=== PATIENT | male | born 1980 | race Caucasian/White ===

== ENCOUNTER 2021-05-22 16:22 | Emergency (ER) | payer OTHER, SELFPAY ==
[2021-05-22 16:26] VITALS: BP 150/79; PULSE 84; RESP 16; TEMP 36.8; O2SAT 96; BMI 30.3
--- NOTE | 2021-05-22 16:32 | DI.RAD.S_ITS ---
PROCEDURE: XR KNEE RT 3V INDICATIONS: fall from 6 ft/ R knee swelling TECHNIQUE: 3 views of the knee were acquired. COMPARISON: None. FINDINGS: Bones: Comminuted fracture of the proximal tibia predominantly involving the tibial spines extending into the posterior tibial cortex. Mild buckling of the posterior cortex without significant displacement. Soft tissues: Large suprapatellar lipohemarthrosis noted. IMPRESSION: Proximal comminuted tibial fracture associated with large lipohemarthrosis Approved by: Ian Mclaughlin M.D. on 05/22/2021 at 16:43
--- NOTE | 2021-05-22 16:48 | DI.RAD.S_ITS ---
PROCEDURE: XR FOOT RT 2V INDICATIONS: Fall TECHNIQUE: 2 views of the foot were acquired. COMPARISON: None. FINDINGS: Bones: No fractures or dislocations. No suspicious bony lesions. Soft tissues: No tibiotalar joint effusion. Achilles tendon appears normal. IMPRESSION: Unremarkable right foot radiographs Approved by: Ian Mclaughlin M.D. on 05/22/2021 at 16:45
--- NOTE | 2021-05-22 16:48 | DI.RAD.S_ITS ---
PROCEDURE: XR TIBIA FUBULA RT 2V INDICATIONS: Fall TECHNIQUE: 2 views of the tibia and fibula were acquired. COMPARISON: None. FINDINGS: Bones: Proximal tibial intra-articular fracture with lipohemarthrosis is present. No distal tibial or fibular fracture. Soft tissues: No suspicious soft tissue calcifications or masses. IMPRESSION: Comminuted intra-articular proximal tibial fracture Approved by: Ian Mclaughlin M.D. on 05/22/2021 at 16:44
[2021-05-22] MEDS: MORPHINE 4 MG/ML INJ IV ×3 (17:11→21:23)
[2021-05-22 18:16] VITALS: BP 134/78; PULSE 77; O2SAT 99
--- NOTE | 2021-05-22 18:47 | ED_ITS ---
HPI - Extremity Injury (Lower) <Amado Mack PA-C - Last Filed: 05/22/21 20:43> General Chief Complaint: Extremity Injury, Lower Stated Complaint: fall Time Seen by Provider: 05/22/21 16:32 History of Present Illness HPI Narrative: 41-year-old male with no reported past medical history presents to the ED status post a right knee injury. Patient had a mechanical fall where he landed on his right foot, his knee buckled, he hit his right knee to the floor. Patient reports 10 pain, is unable to bear weight or walk on the right leg, reports swelling. Denies numbness, tingling, weakness. Denies head strike, loss of consciousness. Denies any other injuries. Denies neck pain. Related Data Allergies Allergy/AdvReac Type Severity Reaction Status Date / Time No Known Drug Allergies Allergy Verified 05/22/21 17:03 Review of Systems <Amado Mack PA-C - Last Filed: 05/22/21 20:43> Constitutional Constitutional: Denies chills, Denies fatigue, Denies fever(s), Denies frequent falls, Denies lethargy and Denies weakness Eyes Eyes: Denies change in vision, Denies eye discharge, Denies irritation and Denies loss of vision ENT Ears, Nose, Mouth, and Throat: Denies change in voice, Denies dizziness, Denies neck pain, Denies sore throat and Denies throat swelling Cardiovascular Cardiovascular: Denies chest pain, Denies irregular heart rhythm, Denies lightheadedness, Denies palpitations, Denies dyspnea, Denies dyspnea on exertion and Denies orthopnea Respiratory Respiratory: Denies cough, Denies dyspnea, Denies dyspnea on exertion and Denies wheezing Gastrointestinal Gastrointestinal: Denies abdominal pain, Denies change in bowel habits, Denies diarrhea, Denies nausea and Denies vomiting Musculoskeletal Musculoskeletal: Denies neck pain and Denies numbness Comments: Right knee swelling, pain. Unable to bear weight or walk on right leg Integumentary/Breasts Skin/Breast: Denies pruritus, Denies erythema, Denies rash and Denies wounds Neurologic Neurologic: Denies behavioral changes, Denies confusion, Denies dizziness, Denies frequent falls, Denies loss of vision, Denies numbness and Denies weakness Psychiatric Psychiatric: Denies anxiety, Denies behavioral changes, Denies confusion, Denies depression, Denies homicidal ideation and Denies suicidal ideation Endocrine Endocrine: Denies fatigue, Denies flushing and Denies palpitations Hematologic/Lymphatic Hematologic/Lymphatic: Denies easy bruising Allergic/Immunologic Allergic/Immunologic: Denies urticaria, Denies throat swelling and Denies wheezing Exam <Amado Mack PA-C - Last Filed: 05/22/21 20:43> Initial Vital Signs Initial Vital Signs: Vital Signs Temperature 98.3 F 05/22/21 16:26 Pulse Rate 84 05/22/21 16:26 Respiratory Rate 16 05/22/21 16:26 Blood Pressure 150/79 H 05/22/21 16:26 Pulse Oximetry 96 05/22/21 16:26 Const General: cooperative HENMT Head: normocephalic and atraumatic Ears: external ears normal and TM's normal bilaterally Nose: external nose normal and No nasal discharge Face and sinus: sinuses nontender, face symmetric, no sinus tenderness and No dry mucous membranes Mouth: oral mucosae normal and moist mucous membranes Teeth and gingiva: dentition normal Throat: tonsils normal and uvula midline Eyes General: appearance normal, both eyes and all related structures Eyelids: eyelids normal Conjunctivae: conjunctivae normal Sclera: sclerae normal Pupils: PERRL EOM: EOM intact bilaterally Neck Neck: normal visual inspection, trachea midline, No lymphadenopathy, No midline deformity and No JVD Lymphatic: No lymphedema Chest Chest: normal inspection of the chest Resp Effort & Inspection: normal respiratory effort, able to speak in complete sentences, no respiratory distress and no use of accessory muscles Auscultation: clear to auscultation bilaterally, no rales, no rhonchi and no wheezes Cardio Rate: regular rate Rhythm: regular rhythm Heart Sounds: no click, no gallops, no murmurs and no rubs Pulses: normal peripheral pulses GI Inspection: non-distended Palpation: soft, no hepatosplenomegaly, No guarding, No pulsatile mass and No tender Auscultation: normal bowel sounds Back/Spine/Pelvis Back: No CVA tenderness Cervical Spine: cervical ROM normal and No pain with cervical ROM Thoracic/Lumbar Spine: thoracic and lumbar spine normal to inspection Skin General: no rashes or lesions noted, No jaundice and No petechiae Neuro General: patient alert, patient oriented x3, gait normal and no focal motor deficits Speech: speech normal Extrem General: no clubbing, cyanosis or edema and no pedal edema Other: Right knee with significant suprapatellar swelling. Significantly tender to palpation. Patient unable to range his knee, limited by pain. Patient is neurovascularly intact. Psych Appearance: well kempt Mental Status: mental status grossly normal Attitude: cooperative Thought Content: normal and suicidality Judgment: judgment good <Jasmin Brothers DO - Last Filed: 05/24/21 23:47> Initial Vital Signs Initial Vital Signs: Vital Signs Temperature 98.3 F 05/22/21 16:26 Pulse Rate 84 05/22/21 16:26 Respiratory Rate 16 05/22/21 16:26 Blood Pressure 150/79 H 05/22/21 16:26 Pulse Oximetry 96 05/22/21 16:26 Course <Amado Mack PA-C - Last Filed: 05/22/21 20:43> Course Course Narrative: X-ray shows a comminuted fracture of the proximal tibia predominantly involving the tibial spines extending into the posterior tibial cortex. There is also a large suprapatellar lipohemarthrosis noted. Will obtain CT of the right lower extremity for more details. Patient continues to be neurovascularly intact and stable. Compartments soft. Knee immobilizer applied. Will reassess. Dr. Wendy Klein office assistant receptionist orthosurgeon consulted. He recommends transfer for surgery. [facility] ED called, consulted Dr. Todd Jaramillo (accepting physician). Patient to be sent ALS d/t pain medication needs. Orders Ordered: Discontinued Medications Morphine Sulfate (Morphine 4 Mg/Ml Inj) 4 mg IV NOW ONE Stop: 05/22/21 16:50 Last Admin: 05/22/21 17:11 Dose: 4 mg Documented by: CONOR Morphine Sulfate (Morphine 4 Mg/Ml Inj) 4 mg IV NOW ONE Stop: 05/22/21 20:27 Last Admin: 05/22/21 20:31 Dose: 4 mg Documented by: KATLYN Morphine Sulfate (Morphine 4 Mg/Ml Inj) 4 mg IV NOW ONE Stop: 05/22/21 21:22 Last Admin: 05/22/21 21:23 Dose: 4 mg Documented by: KATLYN Vital Signs Vital signs: Vital Signs - 8 hr 05/22/21 16:26 05/22/21 18:16 Temperature 98.3 F Pulse Rate 84 77 Respiratory Rate 16 Blood Pressure 150/79 H 134/78 Pulse Oximetry 96 99 <Jasmin Brothers DO - Last Filed: 05/24/21 23:47> Orders Ordered: Discontinued Medications Morphine Sulfate (Morphine 4 Mg/Ml Inj) 4 mg IV NOW ONE Stop: 05/22/21 16:50 Last Admin: 05/22/21 17:11 Dose: 4 mg Documented by: CONOR Morphine Sulfate (Morphine 4 Mg/Ml Inj) 4 mg IV NOW ONE Stop: 05/22/21 20:27 Last Admin: 05/22/21 20:31 Dose: 4 mg Documented by: KATLYN Morphine Sulfate (Morphine 4 Mg/Ml Inj) 4 mg IV NOW ONE Stop: 05/22/21 21:22 Last Admin: 05/22/21 21:23 Dose: 4 mg Documented by: DBROYLE Vital Signs Vital signs: Vital Signs - 8 hr 05/22/21 16:26 05/22/21 18:16 Temperature 98.3 F Pulse Rate 84 77 Respiratory Rate 16 Blood Pressure 150/79 H 134/78 Pulse Oximetry 96 99 MDM - Extremity Injury (Lower) <Amado Mack PA-C - Last Filed: 05/22/21 20:43> Medical Records Attestation: I reviewed the patient's medical records. Lab Data Labs: Lab Results 05/22/21 Range/Units 20:26 SARS-CoV-2 (PCR) Negative (Negative) Imaging Data Extremity x-ray #1: Radiologist's Impression: PROCEDURE:? XR TIBIA FUBULA RT 2V ? INDICATIONS:? Fall ? TECHNIQUE:? 2 views of the tibia and fibula were acquired.? ? COMPARISON:? None. ? FINDINGS:? ? Bones:? Proximal tibial intra-articular fracture with lipohemarthrosis is present.? No distal tibial or fibular fracture. ? Soft tissues:? No suspicious soft tissue calcifications or masses.? ? IMPRESSION:? Comminuted intra-articular proximal tibial fracture ? ? ? Approved by: Ian Mclaughlin M.D. on 05/22/2021 at 16:44? Extremity x-ray #2: Radiologist's Impression: PROCEDURE:? XR FOOT RT 2V ? INDICATIONS:? Fall ? TECHNIQUE:? 2 views of the foot were acquired.? ? COMPARISON:? None. ? FINDINGS:? ? Bones:? No fractures or dislocations.? No suspicious bony lesions.? ? Soft tissues:? No tibiotalar joint effusion.? Achilles tendon appears normal.? ? ? IMPRESSION:? Unremarkable right foot radiographs ? ? ? Approved by: Ian Mclaughlin M.D. on 05/22/2021 at 16:45? Extremity x-ray #3: Radiologist's Impression: PROCEDURE:? XR KNEE RT 3V ? INDICATIONS:? fall from 6 ft/ R knee swelling ? TECHNIQUE:? 3 views of the knee were acquired.? ? COMPARISON:? None. ? FINDINGS:? ? Bones:? Comminuted fracture of the proximal tibia predominantly involving the tibial spines extending into the posterior tibial cortex.? Mild buckling of the posterior cortex without significant displacement. ? Soft tissues:? Large suprapatellar lipohemarthrosis noted. ? ? IMPRESSION:? Proximal comminuted tibial fracture associated with large lipohemarthrosis ? ? ? Approved by: Ian Mclaughlin M.D. on 05/22/2021 at 16:43? CT Right LE: Radiologist's Impression: PROCEDURE:? CT LE RT WO CON ? INDICATIONS:? tibial fx ? TECHNIQUE:? Noncontrast 1-1.5 mm axial sections acquired from the mid-patella to the proximal tibia, with coronal and sagittal reformats.? ? COMPARISON:? [facility], CR, XR TIBIA FIBULA RT 2V, 05/22/2021, 16:48. ? FINDINGS:? Image quality:? Excellent.? ? Bones:? Comminuted, intra-articular fracture involving the medial and lateral tibial plateaus with 1-2 millimeters of depression involving the lateral tibial plateau component.? There is impaction fracture of the lateral femoral condyle.? Lateral femoral condyle fracture fragment is depressed approximately 4-5 millimeters. ? Soft tissues:? Moderate-sized joint effusion.? Mild prepatellar soft tissue swelling. ? ? IMPRESSION:? ? 1. Minimally depressed, comminuted, intra-articular fracture involving the medial and lateral tibial plateaus. ? 2. Impaction fracture of the lateral femoral condyle with approximately 4-5 millimeters of depression.? ? 3. Injury pattern concerning for anterior cruciate ligament tear.? Recommend MRI of the knee for additional evaluation when clinically feasible.? Dictated by: Judie Bhatti MD, PhD on 05/22/2021 at 20:05 ? ? Approved by: Judie Bhatti MD, PhD on 05/22/2021 at 20:09 ? [facility] Narrative Medical decision making narrative: 41-year-old male with no reported past medical history presents to the ED status post a right knee injury. Concern for fracture, dislocation. Will order x-rays. Will give morphine for pain. Will reassess. <Jasmin Brothers DO - Last Filed: 05/24/21 23:47> Lab Data Labs: Lab Results 05/22/21 Range/Units 20:26 SARS-CoV-2 (PCR) Negative (Negative) Discharge Plan Departure Patient Disposition: [facility] Clinical Impression: Fracture of tibial plateau Qualifiers: Encounter type: initial encounter Fracture type: closed Laterality: right Qualified Code(s): S82.141A - Displaced bicondylar fracture of right tibia, initial encounter for closed fracture <Jasmin Brothers DO - Last Filed: 05/24/21 23:47> Cosign ED Attending Cosignature Attestation: I was immediately available in the department for consultation. Documentation has been reviewed. I agree with assessment and plan.
--- NOTE | 2021-05-22 18:57 | DI.CT.S_ITS ---
PROCEDURE: CT LE RT WO CON INDICATIONS: tibial fx TECHNIQUE: Noncontrast 1-1.5 mm axial sections acquired from the mid-patella to the proximal tibia, with coronal and sagittal reformats. COMPARISON: [facility], CR, XR TIBIA FIBULA RT 2V, 05/22/2021, 16:48. FINDINGS: Image quality: Excellent. Bones: Comminuted, intra-articular fracture involving the medial and lateral tibial plateaus with 1-2 millimeters of depression involving the lateral tibial plateau component. There is impaction fracture of the lateral femoral condyle. Lateral femoral condyle fracture fragment is depressed approximately 4-5 millimeters. Soft tissues: Moderate-sized joint effusion. Mild prepatellar soft tissue swelling. IMPRESSION: 1. Minimally depressed, comminuted, intra-articular fracture involving the medial and lateral tibial plateaus. 2. Impaction fracture of the lateral femoral condyle with approximately 4-5 millimeters of depression. 3. Injury pattern concerning for anterior cruciate ligament tear. Recommend MRI of the knee for additional evaluation when clinically feasible. Dictated by: Judie Bhatti MD, PhD on 05/22/2021 at 20:05 Approved by: Judie Bhatti MD, PhD on 05/22/2021 at 20:09
[2021-05-22 20:19] VITALS: BP 123/71; PULSE 75; O2SAT 97
[2021-05-22 20:30] VITALS: PULSE 81; O2SAT 96
[2021-05-22 21:24] LABS: COVID19 -Nasal RAPID Negative (Negative)
== END 2021-05-22 21:37 | disposition short-term general hospital (02) ==
PROVIDERS: Emergency Provider Student in an Organized Health Care Education/Training Program
DX: S82.141A Displaced bicondylar fracture of right tibia, initial encounter for closed fracture (principal); S72.421A Displaced fracture of lateral condyle of right femur, initial encounter for closed fracture; W19.XXXA Unspecified fall, initial encounter; Y99.0 Civilian activity done for income or pay; Z20.822 Contact with and (suspected) exposure to COVID-19
CPT/HCPCS: 73562; 73590; 73620; 73700; 87635; 96374; 96376; 99284; C9803; J2270